=== PATIENT | male | born 1975 | race Caucasian/White ===

== ENCOUNTER 2017-03-28 23:01 | Emergency (ER) | payer OTHER ==
[2017-03-28 23:10] VITALS: BP 124/69; PULSE 94; RESP 18; TEMP 97.3; O2SAT 95
--- NOTE | 2017-03-28 23:21 | EDPHY ---
H & P Stated Complaint: L OUTER EAR SKIN LESION/POS INFX Time Seen by Provider: 03/28/17 23:13 HPI/ROS: HPI The patient presents with left-sided ear pain and warmth. He has had pain in the area over the last 1 week and noticed a small area of redness. It is been getting progressively worse over the course of the week and has been constant. Today, it began to feel warm and was throbbing. He does not have any changes in his hearing. He does not have a fever. He does have a history of MR LI infections over the last 3-4 years and has taken antibiotics for these. This feels similar to him. He does not have any drainage from the ear. REVIEW OF SYSTEMS Constitutional: No fever, no chills. Eyes: No discharge. ENT: No sore throat. Skin: Positive for rashes. Neurological: No headache. PMHx: History of MR LI PHYSICAL General Appearance: Alert, no distress Eyes: Pupils equal and round no pallor or injection ENT, Mouth: L crura of the antihelix with 5 mm superficial ulceration, surrounding this there is erythema superiorly to the helix without any edema present, this is tender to palpation, ear canal is normal, TM is unremarkable, Mucous membranes moist Respiratory: Breathing comfortably Neurological: A&O, moves all extremities Skin: Warm and dry Musculoskeletal: Neck is supple non tender Psychiatric: Patient is oriented X 3, there is no agitation Source: Patient Exam Limitations: No limitations - Personal History Current Tetanus Diphtheria and Acellular Pertussis (TDAP): Unsure - Medical/Surgical History Hx Asthma: No Hx Chronic Respiratory Disease: No Hx Diabetes: No Hx Cardiac Disease: No Hx Renal Disease: No Hx Cirrhosis: No Hx Alcoholism: No Hx HIV/AIDS: No Hx Splenectomy or Spleen Trauma: No Other PMH: HYPOTHYROIDISM, HERPES SIMPLEX - Social History Smoking Status: Never smoked Constitutional: Initial Vital Signs Temperature (C) 36.3 C 03/28/17 23:07 Heart Rate 94 03/28/17 23:07 Respiratory Rate 18 03/28/17 23:07 Blood Pressure 124/69 H 03/28/17 23:07 O2 Sat (%) 95 03/28/17 23:07 O2 Delivery Mode Room Air Allergies/Adverse Reactions: No Known Allergies Allergy (Unverified 03/28/17 23:06) Home Medications: Medication Instructions Recorded Clindamycin HCl [Clindamycin] 300 mg PO TID #30 cap 03/28/17 Levothyroxine 03/28/17 Medical Decision Making Differential Diagnosis: 41-year-old male with history of MR skin infections presents with several days of progressive left ear pain and redness. On exam, his external ear is erythematous and slightly tender to palpation with ulceration present. There is no area of fluctuance and no edema. 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 There is no involvement of his middle ear, there is no cauliflower ear. I will start him on clindamycin. I will have him follow up with his primary care doctor in a few days unless he is better. Departure - Departure Disposition: Home, Routine, Self-Care Clinical Impression: Cellulitis of external ear Qualifiers: Laterality: left Qualified Code(s): H60.12 - Cellulitis of left external ear Condition: Good Instructions: Cellulitis (ED) Additional Instructions: Please take the antibiotic as prescribed. Use a cool compress to help with pain. You can also use an antibiotic ointment or cream. If you are not better in 1-2 days, you should follow up with your primary care doctor. Referrals: Magnus Mccrary MD [Primary Care Provider] - As per Instructions Prescriptions: Clindamycin HCl [Clindamycin] 300 mg PO TID #30 cap
[2017-03-28] MEDS ORDERED: CLINDAMYCIN 150MG PREPACK#6 BTL TAKEHOME ONE (23:23)
[2017-03-28] MEDS ORDERED: CLINDAMYCIN 150 MG CAP PO ONE (23:23)
== END 2017-03-28 23:36 | disposition home or self-care (01) ==
DX: H60.12 Cellulitis of left external ear (principal)